=== PATIENT | male | born 1975 | race Caucasian/White ===

== ENCOUNTER 2019-07-22 14:28 | Outpatient (CLI) | payer OTHER, SELFPAY ==
--- NOTE | 2019-07-22 14:34 | MR_ITS ---
WS: [id number] MRI LUMBAR SPINE WITH CONTRAST TECHNIQUE: Sagittal T1, T2 and STIR imaging. Axial T1 and T2 imaging. Post gadolinium imaging was obt ained. CLINICAL INFORMATION: LOW BACK PAIN COMPARISON: MRI March 25, 2019 FINDINGS: Normal lumbar alignment. No acute compression. Disc space narrowing with disc bulging worse at L4-L5 and L5-S1. Prior postoperative changes right L5-S1 hemilaminectomy. L1-L2: Minimal annular bulging. Spinal canal and foramen are patent. L2-L3: No significant disc bulging. Spinal canal and foramen are patent. L3-L4: No significant disc bulging. Spinal canal and foramen are patent. Mild facet arthropathy. L4-L5: Broad-based central disc protrusion with mild central canal stenosis. Narrowing of the left gr eater than right subarticular recess. Mild facet arthropathy. Mild bilateral foraminal narrowing. L5-S1: Mild disc bulging with osteophytic ridging. Prior hemilaminectomy. Slight narrowing of the sub articular recess. No recurrent disc protrusion. Mild left greater than right foraminal narrowing. Mil d facet arthropathy. Visualized pelvic bony structures: Normal. Paravertebral soft tissues: Normal. MR/MR lumbar spine wo/w con [id number] IMPRESSION: 1. Prior hemilaminectomy right L5-S1. No recurrent disc extrusion. Minimal asha rowing right subarticular recess. 2. Mild left L5-S1 foraminal narrowing. 3. Broad-based central disc protrusion L4-5 with mild central canal stenosis a nd slight impingement on traversing left greater than right L5 nerve roots. Mil d right L4-5 foraminal narrowing. 4. Mild facet arthropathy L3-L5. 5. 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
--- NOTE | 2019-07-22 15:25 | XR_ITS ---
WS: [id number] LUMBAR SPINE FLEXION AND EXTENSION TECHNIQUE: 3 views of the lumbar spine: Lateral neutral, flexion, and extension views. CLINICAL INFORMATION: Low back pain COMPARISON: None. FINDINGS: Normal lumbar alignment on the neutral view. No instability on the flexion and extension views. Disc space narrowing worse L5-S1 with vacuum disc phenomenon. Bony foraminal narrowing L5-S1. Mild fa cet arthropathy L5-S1. XR/XR lumbar spine f/e only [id number] IMPRESSION: No instability on flexion-extension
== END 2019-07-22 14:29 | disposition home or self-care (01) ==
LOC: RADWPI 14:33
PROVIDERS: Family Provider Internal Medicine; PCP Internal Medicine; Visit Provider Licensed Practical Nurse
DX: M51.17 Intervertebral disc disorders with radiculopathy, lumbosacral region (principal); M51.26 Other intervertebral disc displacement, lumbar region; M48.061 Spinal stenosis, lumbar region without neurogenic claudication
CPT/HCPCS: 72120; 72158; A9579

== ENCOUNTER 2019-09-03 14:11 | Outpatient (RCR) | payer OTHER, SELFPAY | END 2019-09-17 23:59 | disposition home or self-care (01) | LOC: SPT 14:11 | PROVIDERS: Family Provider Internal Medicine; PCP Internal Medicine; Visit Provider Specialist | DX: Z47.89 Encounter for other orthopedic aftercare (principal); M51.16 Intervertebral disc disorders with radiculopathy, lumbar region | CPT/HCPCS: 97110; 97162; G0283 ==

== ENCOUNTER 2019-09-18 06:00 | Outpatient (RCR) | payer OTHER, SELFPAY | END 2019-10-18 23:59 | disposition home or self-care (01) | LOC: SPT 06:00 | PROVIDERS: PCP Internal Medicine; Visit Provider Specialist | DX: M51.16 Intervertebral disc disorders with radiculopathy, lumbar region (principal) | CPT/HCPCS: 97110; G0283 ==

== ENCOUNTER → 2019-09-30 13:54 | Outpatient (BNVA) | payer OTHER, SELFPAY | PROVIDERS: Family Provider Internal Medicine; PCP Internal Medicine; Referring Provider Specialist; Visit Provider Anesthesiology Pain Medicine | DX: M51.16 Intervertebral disc disorders with radiculopathy, lumbar region (principal); M54.9 Dorsalgia, unspecified; F17.210 Nicotine dependence, cigarettes, uncomplicated | CPT/HCPCS: 99203; 99204 ==

== ENCOUNTER 2019-10-19 06:00 | Outpatient (RCR) | payer OTHER, SELFPAY | END 2019-11-17 23:59 | disposition home or self-care (01) | LOC: SPT 06:00 | PROVIDERS: PCP Internal Medicine; Visit Provider Specialist | DX: Z47.89 Encounter for other orthopedic aftercare (principal); M51.16 Intervertebral disc disorders with radiculopathy, lumbar region | CPT/HCPCS: 97110; G0283 ==

== ENCOUNTER → 2019-10-21 12:32 | Outpatient (BNVA) | payer OTHER, SELFPAY | PROVIDERS: PCP Internal Medicine; Visit Provider Anesthesiology Pain Medicine | DX: M51.17 Intervertebral disc disorders with radiculopathy, lumbosacral region (principal); M54.9 Dorsalgia, unspecified; F17.210 Nicotine dependence, cigarettes, uncomplicated | CPT/HCPCS: 64483; 64484; J1040; J2001; J3490 ==

== ENCOUNTER → 2019-11-04 10:15 | Outpatient (BNVA) | payer OTHER, SELFPAY | PROVIDERS: PCP Internal Medicine; Visit Provider Anesthesiology Pain Medicine | DX: M54.9 Dorsalgia, unspecified (principal); F17.210 Nicotine dependence, cigarettes, uncomplicated | CPT/HCPCS: 99212; 99213 ==

== ENCOUNTER 2019-11-18 06:00 | Outpatient (RCR) | payer OTHER, SELFPAY | END 2019-12-18 23:59 | disposition home or self-care (01) | LOC: SPT 06:00 | PROVIDERS: PCP Internal Medicine; Visit Provider Specialist | DX: Z47.89 Encounter for other orthopedic aftercare (principal); Z98.1 Arthrodesis status; M51.16 Intervertebral disc disorders with radiculopathy, lumbar region | CPT/HCPCS: 97110 ==

== ENCOUNTER 2023-11-15 13:52 | Outpatient (RCR) | payer OTHER, SELFPAY | END 2023-11-17 23:59 | disposition home or self-care (01) | LOC: SPT 13:52 | PROVIDERS: Visit Provider Family Medicine | DX: M54.50 Low back pain, unspecified (principal) | CPT/HCPCS: 97161 ==

== ENCOUNTER 2023-11-18 06:00 | Outpatient (RCR) | payer OTHER, SELFPAY | END 2023-12-18 23:59 | disposition home or self-care (01) | LOC: SPT 06:00 | PROVIDERS: Visit Provider Family Medicine | DX: M54.50 Low back pain, unspecified (principal) | CPT/HCPCS: 97110 ==

== ENCOUNTER 2023-12-19 06:00 | Outpatient (RCR) | payer OTHER, SELFPAY | END 2024-01-18 23:59 | disposition home or self-care (01) | LOC: SPT 06:00 | PROVIDERS: Visit Provider Family Medicine | DX: M54.50 Low back pain, unspecified (principal) | CPT/HCPCS: 97110 ==

== ENCOUNTER 2024-01-19 06:00 | Outpatient (RCR) | payer OTHER, SELFPAY | END 2024-02-17 23:59 | disposition home or self-care (01) | LOC: SPT 06:00 | PROVIDERS: Visit Provider Family Medicine | DX: M54.50 Low back pain, unspecified (principal) | CPT/HCPCS: 97110 ==

== ENCOUNTER 2024-02-18 06:00 | Outpatient (RCR) | payer OTHER, SELFPAY | END 2024-03-19 23:59 | disposition home or self-care (01) | LOC: SPT 06:00 | PROVIDERS: Visit Provider Family Medicine | DX: M54.50 Low back pain, unspecified (principal) | CPT/HCPCS: 97110 ==

== ENCOUNTER → 2024-06-24 12:59 | Outpatient (BNVA) | payer OTHER, SELFPAY | PROVIDERS: Visit Provider Surgery | DX: Z12.11 Encounter for screening for malignant neoplasm of colon (principal) | CPT/HCPCS: 99203 ==

== ENCOUNTER 2024-07-09 09:55 | Day surgery (SDC) | payer OTHER, SELFPAY ==
[2024-07-09 10:08] VITALS: BP 133/93; PULSE 84; RESP 17; TEMP 36.8; O2SAT 98; BMI 23.0
--- NOTE | 2024-07-09 10:12 | P.HPUD_ITS ---
Surgery/Procedure H&P Update DATE OF PROCEDURE: July 09, 2024 DATE H&P PERFORMED: 06/24/24 H&P UPDATE INFORMATION: I have reviewed H&P completed within last 30 days, I have examined patient prior to procedure, No changes to prior documentation and [place] [facility] [place] PLANNED PROCEDURE: Operation Date: 07/09/24 11:30 Proposed Procedures p Colonoscopy [id number], G0121, Z12.11(Not Applicable) - Matthew Perla MD
--- NOTE | 2024-07-09 10:12 | W.PM.OPSUD ---
Surgery/Procedure H&P Update DATE OF PROCEDURE: July 09, 2024 DATE H&P PERFORMED: 06/24/24 H&P UPDATE INFORMATION: I have reviewed H&P completed within last 30 days, I have examined patient prior to procedure, No changes to prior documentation and H&[place] is in [facility] [place] date indicated PLANNED PROCEDURE: Operation Date: 07/09/24 11:30 Proposed Procedures p Colonoscopy [id number], G0121, Z12.11(Not Applicable) - Matthew Perla MD
[2024-07-09] MEDS: sodium chloride 0.9% 500 ML 15 ML IV (10:16)
--- NOTE | 2024-07-09 10:47 | ANES.PREANE2 ---
Pre-Anesthetic Assessment Height/Weight: Height 1.8 m Weight 74.843 kg Temp Pulse Resp BP Pulse Ox O2 Del Method 98.3 F 84 17 133/93 98 Room Air 07/09/24 10:08 07/09/24 10:08 07/09/24 10:08 07/09/24 10:08 07/09/24 10:08 07/09/24 10:08 Preop Diagnosis: screening Operation Date: 07/09/24 11:30 Proposed Procedures p Colonoscopy [id number], G0121, Z12.11(Not Applicable) - Matthew Perla MD Familial anesthetic complications: none Was Beta Carolyne taken within 24 hours: N/A Was Clonidine taken within 24 hours: N/A Last intake: Intake Last Liquid Date 07/08/24 Last Liquid Time 23:25 Last Solid Date 07/07/24 Last Solid Time 21:00 Social Alcohol ( less than 6 a night (beers)) and Tobacco (1/2 ppd) Exam alert and oriented x 3 Airway Submandibular: within normal limits Cervical ROM: within normal limits Mallampati: Class II Dentition: full History/ROS No significant history except as noted Pulmonary None reported CV/HEM None reported None reported Hepatic None reported GI None reported Metabolic None reported Musc/skel Lower Back Pain and Osteoarthritis/DJD Neuropsych None reported Anesthetic Plan ASA status: 2 Anesthesia: Anesthesia Evaluation and MAC Medications/Allergies Home Medications ?Medication ?Instructions ?Recorded ?Confirmed ?Last Taken ?Type ibuprofen 200 mg tablet 400 mg PO Q8H PRN Pain 06/18/19 07/09/24 Unknown History ondansetron 8 mg disintegrating 8 mg PO Q8H PRN nausea and 06/29/24 07/09/24 07/08/24 Rx tablet vomiting #3 tabs Allergies Allergy/AdvReac Type Severity Reaction Status Date / Time No Known Allergies Allergy Verified 07/09/24 10:05 Current Medications Generic Name Dose Route Start Last Admin Trade Name Freq PRN Reason Stop Dose Admin Sodium Chloride 500 mls @ 15 mls/hr 07/09/24 09:58 07/09/24 10:16 Sodium Chloride 0.9% IV 07/10/24 09:57 15 mls/hr .Q24H PRN Administration COLONOSCOPY FLUIDS PFSH Anesthesia Medical History Displacement of lumbar disc with radiculopathy 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 Gupta History of tonsillectomy (~1984) History of lumbar surgery (~05/2016) Dr. Srinivas Flores [facility]. Right L5-S1 hemilaminectomy. Family History Unknown No problems noted. 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
[2024-07-09 12:34] VITALS: BP 100/69; PULSE 60; RESP 16; TEMP 36.1; O2SAT 97
[2024-07-09 12:51] VITALS: BP 117/84; PULSE 80; RESP 18; O2SAT 98
--- NOTE | 2024-07-09 13:13 | ANE.PACU2 ---
Inpatient post-anesthesia follow up: Airway intact: Yes Vital signs: Temperature 97 F Pulse Rate 80 Respiratory Rate 18 Blood Pressure 117/84 Pulse Oximetry 98 Oxygen Delivery Me thod Room Air Oxygen Flow Rate Fraction of Inspir ed Oxygen Hydration adequate: Yes Nausea and vomiting: No Pain level: 1 Mental status: Baseline
== END 2024-07-09 13:13 | disposition home or self-care (01) ==
PROVIDERS: PCP Family Medicine; Visit Provider Surgery
PROC: 0DJD8ZZ Inspection of Lower Intestinal Tract, Via Natural or Artificial Opening Endoscopic (ICD-10-PCS; CPT 45378; principal; 2024-07-09 11:30)
DX: Z12.11 Encounter for screening for malignant neoplasm of colon (principal); D12.2 Benign neoplasm of ascending colon; K62.1 Rectal polyp; F17.210 Nicotine dependence, cigarettes, uncomplicated
CPT/HCPCS: 45385; 88305; J2704; J7040

== ENCOUNTER → 2024-07-21 13:48 | Outpatient (BNVA) | payer OTHER, SELFPAY | PROVIDERS: PCP Family Medicine; Visit Provider Surgery | DX: Z09 Encounter for follow-up examination after completed treatment for conditions other than malignant neoplasm (principal) | CPT/HCPCS: 99213 ==